=== PATIENT | male | born 1955 | race African-American/Black ===

== ENCOUNTER 2017-01-02 02:47 | Emergency (ER) | payer OTHER ==
--- NOTE | ~2017-01-02 | CR6 ---
[facility] A Service of [facility] & [facility] RADIOLOGY TEXT RESULTS PATIENT: DIANNA ARROYO LOCATION: [facility] : 53 UNIT #: [id number] AGE: [address]: Cristela Tsai MD SEX: M ORDER DR: [id number] [facility] [address] [place], [place] [address] [id number] MR#: [id number] Acc #: [id number] NAME: DINANA ARROYO : 1955 SEX: M STUDY DATE/TIME: 01/02/2017 3:34 UNIT: [facility] ROOM: STUDY DESCRIPTION: CR Abdomen Portable Sng View Attending Physician: Cristela Tsai M.D. Ordering Physician: Cristela Tsai M.D. MEDICAL IMAGING REPORT This report is preliminary unless electronic signature is present EXAM Single view abdomen INDICATIONS Right flank pain for 2 days. Renal calculi. FINDINGS AP radiograph of the abdomen without comparison. The renal shadows are partially obscured. There is a 5 mm calculus mid right kidney. Several calcified phleboliths are noted in the deep pelvis. No bladder calculi. No acute osseous abnormalities. The bowel gas pattern is nonobstructive. IMPRESSION 5 mm nonobstructing right renal calculus. Dictated by... Luke Sandy M.D. THIS IS AN ELECTRONICALLY VERIFIED REPORT Luke Sandy M.D. at 01/02/2017 9:07 PM NAV/ale TD: 01/02/2017 06:30 JOB #: [id number] MEDICAL IMAGING REPORT Page 1 of 1 COPY
[2017-01-02 03:37] LABS: URINE SOURCE CLEAN CATCH
[2017-01-02 03:40] LABS: BASOPHIL% 0.2 % (0-2.5); EOSINOPHIL# 0.1 X10e3 (0-0.7); EOSINOPHIL% 1.5 % (0.0-7.0); HEMATOCRIT 45.1 % (38.0-50.0); HEMOGLOBIN 14.5 gm/dL (13.0-16.0); LYMPHOCYTE# 1.6 X10e3 (1.0-3.5); LYMPHOCYTE% 17.7 % (17.0-45.0); MEAN CELL VOLUME 96.9 FL (83-96); MEAN CORPUSCULAR HEMOGLOBIN 31.1 PG (28-34); MEAN CORPUSCULAR HGB CONC 32.1 g/dL (30-36); MEAN PLATELET VOLUME 7.8 FL (6.5-11.5); MONOCYTE# 0.9 X10e3 (0-1.0); MONOCYTE% 10.2 % (3.0-12.0); NEUTROPHIL# 6.2 X10e3 (1.5-7.1); NEUTROPHIL% 70.4 % (40-75); PLATELET COUNT 305 X10e3 (140-420); RED BLOOD COUNT 4.66 X10e (3.90-5.60); RED CELL DISTRIBUTION WIDTH 13.3 % (11.0-15.5); WHITE BLOOD COUNT 8.9 X10e3 (4.0-10.5)
[2017-01-02 03:42] LABS: URINE APPEARANCE CLEAR; URINE BILIRUBIN NEG (NEG); URINE BLOOD 1+ (NEG); URINE COLOR YELLOW; URINE GLUCOSE NEG (NEG); URINE KETONE NEG (NEG); URINE LEUKOCYTE ESTERASE NEG (NEG); URINE NITRATE NEG (NEG); URINE PH 5.5 (5-8); URINE PROTEIN TRACE (NEG); URINE SPECIFIC GRAVITY 1.024 (1.003-1.035)
[2017-01-02 03:45] LABS: URINE BACTERIA AUWI NEG (NEGATIVE); URINE SQUAMOUS EPITHELIAL CELL NONE SEEN /[HPF]
[2017-01-02 03:47] LABS: DIFF IND NO
[2017-01-02 03:48] LABS: CULTURE INDICATED? NO
[2017-01-02 04:11] LABS: ALBUMIN SERUM 4.1 g/dL (3.5-5.0); BILIRUBIN, DIRECT 0.1 mg/dL (0.0-0.2); BILIRUBIN,INDIRECT 0.6 mg/dL (0.0-0.9); BILIRUBIN,TOTAL 0.7 mg/dL (0.2-2.0); BUN/CREATININE RATIO 12.3; CREATININE SERUM 1.3 mg/dL (0.6-1.4); GLOM FILT RATE Estimated 58.5 mL/min (>60); POTASSIUM 3.8 mmol/L (3.5-5.1); PROTEIN TOTAL SERUM 7.2 g/dL (6.0-8.3)
== END 2017-01-02 05:00 | disposition home or self-care (01) ==
LOC: CED 02:47
PROVIDERS: Emergency Medicine
DX: N20.1 Calculus of ureter (principal); E78.5 Hyperlipidemia, unspecified; H54.0 Blindness, both eyes; E03.9 Hypothyroidism, unspecified
CPT/HCPCS: 74000; 80048; 80076; 81003; 85025; 96374; 96375; 99284; J1885; J2270; J2405

== ENCOUNTER → 2017-01-31 | Outpatient (CLI) | payer OTHER ==
--- NOTE | ~2017-01-31 | CR7 ---
[facility] A Service of [facility] & [facility] RADIOLOGY TEXT RESULTS PATIENT: DIANNA ARROYO LOCATION: [facility] : 53 UNIT #: [id number] AGE: [address]: Dianna Monet MD SEX: M ORDER DR: [id number] [facility] [address] [place], [place] [address] [id number] O MR#: [id number] Acc #: [id number] NAME: DIANNA ARROYO : 1955 SEX: M STUDY DATE/TIME: 01/31/2017 16:20 UNIT: [facility] ROOM: STUDY DESCRIPTION: CR Abdomen Single AP View Attending Physician: Dianna Monet M.D. Referring Physician: Dianna Monet M.D. Ordering Physician: Dianna Monet M.D. Primary Care Physician: Tristin Patel M.D. MEDICAL IMAGING REPORT This report is preliminary unless electronic signature is present EXAM KUB, 01/31 at 16:20. INDICATION Follow up kidney stones. The patient has right side abdominal pain for 2 weeks. FINDINGS Supine views of the abdomen and pelvis are compared with 01/02/17. Again seen are multiple phleboliths in the pelvis. These are unchanged. The bowel gas pattern is normal. There is a calcification measuring about 5 mm in size. It projects over the right L3 transverse process. This was previously at the level of the L2 transverse process and could lie within the right ureter. This could be better assessed with noncontrast CT if indicated. There may be a nonobstructing stone in the upper pole of the right kidney as well. IMPRESSION 5 mm right side stone previously at L2, now at L3 could lie within the right ureter. The exam is otherwise unchanged. Dictated by... Dianna Novoa Jr., M.D. THIS IS AN ELECTRONICALLY VERIFIED REPORT Dianna Novoa Jr., M.D. at 02/01/2017 6:08 AM NOLAN/bj TD: 01/31/2017 22:39 JOB #: [id number] MEDICAL IMAGING REPORT [facility]. [facility] A Service of [facility] & [facility] RADIOLOGY TEXT RESULTS PATIENT: DIANNA ARROYO LOCATION: [facility] #: [id number] : 53 UNIT #: [id number] AGE: [address]: Dianna Monet MD SEX: M ORDER DR: Page 1 of 1 COPY
== END | disposition home or self-care (01) ==
LOC: CRAD 15:50
DX: N20.0 Calculus of kidney (principal)
CPT/HCPCS: 36415; 74000; G0103

== ENCOUNTER → 2017-02-23 | Outpatient (CLI) | payer OTHER ==
--- NOTE | ~2017-02-23 | US77 ---
[facility] A Service of [facility] RADIOLOGY TEXT RESULTS PATIENT: DIANNA ARROYO LOCATION: [place] : 53 UNIT #: [id number] AGE: [address]: Dianna Monet MD SEX: M ORDER DR: [id number] [facility] [address] [place], [place] [address] [id number] O MR#: [id number] Acc #: [id number] NAME: DIANNA ARROYO : 1955 SEX: M STUDY DATE/TIME: 02/23/2017 15:58 UNIT: [facility] ROOM: STUDY DESCRIPTION: US Kidney Bilateral Complete Attending Physician: Dianna Monet M.D. Referring Physician: Dianna Monet M.D. Ordering Physician: Dianna Monet M.D. MEDICAL IMAGING REPORT This report is preliminary unless electronic signature is present EXAM Renal ultrasound 02/23/2017 HISTORY Follow up bilateral kidney stones. Abnormal renal function tests. Elevated creatinine 1.3. Abnormally low eGFR of 58.5. FINDINGS The right kidney measured 11.2 cm, while the left kidney measured 11.2 cm in longitudinal dimensions. There is no evidence of hydronephrosis or nephrolithiasis. There is a 1.2 cm cyst on the right kidney and there is a 3.2 cm cyst on the left kidney. No solid mass lesions are identified. There is normal renal cortical echogenicity. Images of the bladder are normal. IMPRESSION 1. Bilateral renal cysts. Otherwise, negative renal ultrasound. 2. Images of the bladder are normal. Dictated by... Erick Isbell M.D. THIS IS AN ELECTRONICALLY VERIFIED REPORT Erick Isbell M.D. at 02/26/2017 10:15 AM ANNALISE/pollo TD: 02/23/2017 21:42 JOB #: [id number] MEDICAL IMAGING REPORT Page 1 of 1 COPY
--- NOTE | ~2017-02-23 | CR4 ---
[facility] A Service of [facility] RADIOLOGY TEXT RESULTS PATIENT: DIANNA ARROYO LOCATION: [place] : 53 UNIT #: [id number] AGE: [address]: Dianna Monet MD SEX: M ORDER DR: [id number] [facility] [address] [place], [place] [address] [id number] O MR#: [id number] Acc #: [id number] NAME: DIANNA ARROYO : 1955 SEX: M STUDY DATE/TIME: 02/23/2017 16:14 UNIT: [facility] ROOM: STUDY DESCRIPTION: CR Abdomen Flat Upright or Dec Attending Physician: Dianna Monet M.D. Referring Physician: Dianna Monet M.D. Ordering Physician: Dianna Monet M.D. Primary Care Physician: Moreno Patel MEDICAL IMAGING REPORT This report is preliminary unless electronic signature is present EXAM Abdomen flat upright HISTORY Renal stones. FINDINGS Flat and upright views of the abdomen demonstrate a 5 mm calcification to the right of the L2-L3 interspace, along the course of the proximal right ureter, unchanged compared to 01/31/2017. There is also a 3 mm calcification projected over the mid right kidney which is stable. Incidental right pelvic phleboliths. Bowel gas pattern is normal. No free air. Dictated by... Zachery Campbell M.D. THIS IS AN ELECTRONICALLY VERIFIED REPORT Zachery Campbell M.D. at 02/26/2017 11:02 PM MARK/arabella TD: 02/26/2017 07:55 JOB #: [id number] MEDICAL IMAGING REPORT Page 1 of 1 COPY
== END | disposition home or self-care (01) ==
LOC: CGUS 02-22 15:45
DX: N20.0 Calculus of kidney (principal); N28.1 Cyst of kidney, acquired
CPT/HCPCS: 74020; 76770